=== PATIENT | male | born 1950 | race Two or more races ===

== ENCOUNTER 2020-09-23 10:51 | Emergency (ER) | payer MEDICARE, MEDICAID ==
[~2020-09-23] VITALS: Ht 165.1 cm; Wt 60.6 kg
[2020-09-23] MEDS ORDERED: fentaNYL/PF 50MCG/1 ML 2ML syringe IV ONE (12:25)
[2020-09-23] MEDS ORDERED: midazolam 1 mg/ML 2ml injection IV ONE (12:25)
--- NOTE | 2020-09-23 12:53 | NUR ---
FENTANYL 100MCG IV GIVEN FOR SHOULDER MANIPULATION. UNSUCCESSFUL. NEED CONSCIOUS SEDATION
[2020-09-23] MEDS ORDERED: normal saline 1000ML IV soln IVB ONE (12:55)
[2020-09-23] MEDS ORDERED: propofol 10mg/ml 20ml vial IV ONE (12:55)
[2020-09-23] MEDS ORDERED: HYDR-3965 PO (13:44)
[2020-09-23 14:32] VITALS: BP 149/80
== END 2020-09-23 14:30 | disposition home or self-care (01) ==
LOC: ER 10:51
DX: S43.014A Anterior dislocation of right humerus, initial encounter (principal); W01.0XXA Fall on same level from slipping, tripping and stumbling without subsequent striking against object, initial encounter; Y93.89 Activity, other specified; Y92.89 Other specified places as the place of occurrence of the external cause; Y99.8 Other external cause status
CPT/HCPCS: 23650; 73030; 94799; 99285; J3010; J7030; 94760